=== PATIENT | male | born 1995 | race Caucasian/White ===

== ENCOUNTER 2022-08-19 17:59 | Inpatient (IN) ==
[2022-08-19 18:49] LABS: Appearance Urine Clear (Clear); Bilirubin Urine Negative (Negative); Blood Urine Negative (Negative); Color Urine Yellow; Glucose Urine UA Negative (Negative); Ketones Urine Negative (Negative); Leukocyte Esterase Urine Negative (Negative); Nitrite Urine Negative (Negative); Protein Urine Negative (Negative); Specific Gravity Urine 1.022 (1.000-1.030); Urobilinogen Urine Negative (Negative); pH Urine 6.5 (4.5-7.5)
[2022-08-19 18:53] LABS: Basophils # (auto) 0.01 K/uL (0-0.2); Basophils % (auto) 0.2 %; Eosinophils # (auto) 0.32 K/uL (0-0.50); Eosinophils % (auto) 5.1 %; Hematocrit (blood only) 43.5 % (42.0-52.0); Hemoglobin 15.2 g/dl (14.0-18.0); Immature Granulocytes # (auto) 0.01 K/uL (0.01-0.20); Immature Granulocytes % (auto) 0.2 %; Lymphocytes # (auto) 1.49 K/uL (1.2-3.4); Lymphocytes % (auto) 23.8 %; Mean Corpuscular Hemoglobin 30.6 pg (25.0-34.0); Mean Corpuscular Hgb Conc 34.9 g/dL (32.0-36.0); Mean Corpuscular Volume 87.5 fL (80.0-100.0); Mean Platelet Volume 11.2 fL (9.4-12.4); Monocytes # (auto) 0.35 K/uL (0.11-0.59); Monocytes % (auto) 5.6 %; Neutrophils # (auto) 4.09 K/uL (1.40-6.50); Neutrophils % (auto) 65.1 %; Platelet Count 194 K/uL (130-400); RDW Coefficient of Variation 11.9 % (11.5-14.5); RDW Standard Deviation 38.3 fL (36.4-46.3); Red Blood Count 4.97 M/uL (4.70-6.10); White Blood Count 6.27 K/ul (4.8-10.8)
[2022-08-19 19:02] LABS: Acetaminophen < 3 ug/ml (10-30); Salicylate < 3.0 mg/dl (3.0-30)
[2022-08-19 19:03] LABS: Albumin Level 4.6 gm/dl (3.4-5.0); BUN Creatinine Ratio 9.2 (10-20); Bilirubin,Total 0.4 mg/dl (0.2-1.0); Calcium 9.3 mg/dl (8.6-10.3); Creatinine Clr Calc Pharmacy 104.3 ml/min; Est GFR (African American) 108.8 ml/min; Est GFR (Non-African American) 93.8 ml/min; Globulin 2.3 gm/dl (2.5-4.0); Potassium 4.1 mmol/L (3.5-5.1); Total Protein 6.9 gm/dl (6.0-8.3)
[2022-08-19 20:00] LABS: Amphetamines+Metham, Urine Neg (Neg); Barbiturates, Urine Neg (Neg); Benzodiazepine, Urine Neg (Neg); Cocaine, Urine Neg (Neg); MDMA (Ecstacy), Urine Pos (Neg); Methadone, Urine Neg (Neg); Opiate, Urine Neg (Neg); Phencyclidine, Urine Neg (Neg)
--- NOTE | 2022-08-19 20:28 | Emergency Department Note ---
Impression & Plan Mood disorder, Suicidal ideation ED Provider Note INFORMANT: Patient and brother ED PROVIDER(S): Bebeto Pollock MD CHIEF COMPLAINT: Suicidal ideation PLAN: Disposition: Admitted Condition: Good Outpatient prescription management: none Referral: None MEDICAL DECISION MAKING: patient presented because of suicidal ideation. He had no recent medical illness. A medical screening exam was performed did not reveal any acute medical issues. The patient had unremarkable laboratory testing including toxicology screening. Consultation was made with [address] [place] [address]. 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 After review of the information above and other included data, I feel the patien t requires admission. Triage Nursing notes reviewed and agree them. Vital Signs: reviewed and remarkable for no significant abnormalities Prior /Outside records reviewed: none Differential diagnosis: Mood disorder, infection, hypoglycemia, electrolyte abnormalities, cardiac sources, intracerebral event, toxicologic, trauma, neurologic, as well as other pathologies. Diagnostics, as interpreted by me: ECG: none Cardiac Monitoring: none Medical decision rules: none Imaging studies: Deferred HPI: The patient is a 26year old male who presents to the Emergency Room with complaints of suicidal ideation. This started this week and is noted to have worsened today. Patient had a gun and was thinking of shooting himself. He stopped before trying any action and came to the emergency department for help. The patient also notes the following associated symptoms, feeling depressed, poor eating habits, lack of energy. The patient has found no relieving factors. Current pain is rated as 0 no recent illness. Patient follows with [facility].. Pt denies LOC, headache, fevers, chills, diaphoresis, visual changes, neck pain, chest pain, breathing difficulties, nausea, vomiting, abdominal pain, back pain, melena, hematochezia, urinary symptoms, numbness, weakness, lymphadenopathy, rash, or other complaints. PAST MEDICAL HISTORY: See Below, anxiety, depression PAST SURGICAL HISTORY: See Below, SOCIAL HISTORY: See Below, denies alcohol or drugs except marijuana HOME MEDICATIONS: See Below ALLERGIES: See Below VITALS: See Below PHYSICAL EXAMINATION: GENERAL: Awake, alert, well-appearing, in no distress HENT: Normocephalic, atraumatic. Oropharynx unremarkable. EYES: Normal conjunctiva. Sclera non-icteric. NECK: Inspection normal. Non-tender. Supple. No nuchal rigidity. FROM. No masses. RESPIRATORY: Clear to auscultation. No wheezes. No rales. Normal respiratory effort. CARDIAC: Normal rate. Normal rhythm. No murmurs. No rubs. Extremities warm and well perfused. Pulses equal. No JVD. GI: Soft, non-distended. No tenderness to palpation. No rebound or guarding. No masses. RECTAL: Deferred. MUSCULOSKELETAL: Atraumatic. Chest examination reveals no tenderness. The back is symmetrical on inspection without obvious abnormality. There is no CVA tenderness to palpation. No joint edema. LOWER EXTREMITIES: Calves are equal size bilaterally and non-tender. No edema. No discoloration. NEURO: Normal sensorium. No sensory or motor deficits noted. SKIN: No rash or jaundice noted. PSYCH: Depressed mood and flat affect. Positive suicidal ideation. No hallucinations or delusions Past Med/Surg History Medical History (Updated 08/20/22 @ 11:58 by Rhonda Palomino MD) No active medical problems Surgical History No significant past surgical history Family History Other No significant family history Denies family history of Colon cancer Ovarian cancer Prostate cancer Myocardial infarction Breast cancer Social History Smoking Status: Never smoker Tobacco Type: E-cigarettes / Vaping Second Hand Exposure: Yes; Do You Dip or Chew Tobacco: No; Hx Alcohol Use: Yes Alcohol Intake Frequency: Monthly or Less Hx Substance Use: No Preferred Language: Norwegian Communication Ability: Effective Visual Impairment: No Limitations Hearing Ability: Normal Trestle Builder Required: No Beliefs That Will Affect Care: None marital status: Single Current Living Situation: Family Current Living Situation Comment: Lives with brother and girlfriend current occupational status: employed 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 Feels Safe at Home: Yes Dental Care, Regularly: No Physical Activity Frequency: Does not Exercise Gender Identity: Male Assistive Devices: None Allergies Allergies Allergy/AdvReac Type Severity Reaction Status Date / Time cat dander Allergy Sneezing Verified 08/19/22 18:52 Home Meds Home Medications Medication Instructions Recorded Confirmed albuterol sulfate 90 mcg/actuation 1 - 2 inh inhalation QID PRN 08/19/22 08/19/22 aerosol inhaler Shortness Of Breath Or Wheezing bupropion HCl 300 mg 24 hr tablet, 300 mg PO DAILY 08/19/22 08/19/22 extended release buspirone 15 mg tablet 15 mg PO TID 08/19/22 08/19/22 citalopram 20 mg tablet 40 mg PO DAILY 08/19/22 08/19/22 clonidine HCl 0.1 mg tablet 0.05 mg PO BID 08/19/22 08/19/22 lorazepam 0.5 mg tablet 0.5 mg PO TID PRN Anxiety 08/19/22 08/19/22 Results & Data (ED) Vital Signs Vital Signs - 24 hr 08/19/22 18:05 Temperature 36.8 C Temperature Source Temporal Artery Scan Pulse Rate 93 H Respiratory Rate 18 Respiratory Effort / Characteristics Non-Labored Spontaneous Respiratory Depth Normal Respiratory Pattern Regular Blood Pressure 128/84 Blood Pressure Mean 98 Pulse Oximetry 96 Oxygen Delivery Method Room Air Sepsis Recent Fever Within 48 Hours No Sepsis New/Unexplained Change in Mental Status No Sepsis Action Taken by Nursing No Action Required Laboratory Data 08/19/22 18:31 08/19/22 18:31 Lab Results 08/19/22 08/19/22 08/19/22 Range/Units 18:12 18:17 18:17 WBC (4.8-10.8) K/ul RBC (4.70-6.10) M/uL Hgb (14.0-18.0) g/dl Hct (42.0-52.0) % MCV (80.0-100.0) fL MCH (25.0-34.0) pg MCHC (32.0-36.0) g/dL RDW Std Deviation (36.4-46.3) fL RDW Coeff of Vanessa (11.5-14.5) % Plt Count (130-400) K/uL MPV (9.4-12.4) fL Immature Gran % (Auto) % Neut % (Auto) % Lymph % (Auto) % [place] % (Auto) % Eos % (Auto) % Baso % (Auto) % Neut # (Auto) (1.40-6.50) K/uL Lymph # (Auto) (1.2-3.4) K/uL [place] # (Auto) (0.11-0.59) K/uL Eos # (Auto) (0-0.50) K/uL Baso # (Auto) (0-0.2) K/uL Immature Gran # (Auto) (0.01-0.20) K/uL Sodium (136-145) mmol/L Potassium (3.5-5.1) mmol/L Chloride (98-107) mmol/L Carbon Dioxide (21-32) mmol/L Anion Gap (3-11) BUN (6-23) mg/dl Creatinine (0.6-1.4) mg/dl Est Cr Clr Drug Dosing ml/min Est GFR ( Amer) ml/min Est GFR (Non-Af Amer) ml/min BUN/Creatinine Ratio (10-20) Glucose (70-99(Fasting)) mg/dl Calcium (8.6-10.3) mg/dl Total Bilirubin (0.2-1.0) mg/dl AST (13-39) U/L ALT (7-52) U/L Alkaline Phosphatase (34-104) U/L Total Protein (6.0-8.3) gm/dl Albumin (3.4-5.0) gm/dl Globulin (2.5-4.0) gm/dl Albumin/Globulin Ratio (0.9-2) TSH (0.300-4.500) uIu/ml Urine Color Yellow Urine Appearance Clear (Clear) Urine pH 6.5 (4.5-7.5) Ur Specific Tony 1.022 (1.000-1.030) Urine Protein Negative (Negative) Urine Glucose (UA) Negative (Negative) Urine Ketones Negative (Negative) Urine Blood Negative (Negative) Urine Nitrite Negative (Negative) Urine Bilirubin Negative (Negative) Urine Urobilinogen Negative (Negative) Ur Leukocyte Esterase Negative (Negative) Salicylates (3.0-30) mg/dl Urine Opiates Screen Neg (Neg) Ur Methadone, Qual Neg (Neg) Acetaminophen (10-30) ug/ml Urine Barbiturates Neg (Neg) Ur Phencyclidine (PCP) Neg (Neg) U Amphetamin/Meth Scrn Neg (Neg) MDMA (Ecstasy) Screen Pos H (Neg) U Benzodiazepines Scrn Neg (Neg) Ur Cocaine Metabolite Neg (Neg) U Marijuana (THC) Screen Pos H (Neg) Ethyl Alcohol mg/dL (<10.0) mg/dl SARS-CoV-2, RNA, NAAT NEGATIVE (NEGATIVE) 08/19/22 08/19/22 08/19/22 Range/Units 18:31 18:31 18:31 WBC 6.27 (4.8-10.8) K/ul RBC 4.97 (4.70-6.10) M/uL Hgb 15.2 (14.0-18.0) g/dl Hct 43.5 (42.0-52.0) % MCV 87.5 (80.0-100.0) fL MCH 30.6 (25.0-34.0) pg MCHC 34.9 (32.0-36.0) g/dL RDW Std Deviation 38.3 (36.4-46.3) fL RDW Coeff of Vanessa 11.9 (11.5-14.5) % Plt Count 194 (130-400) K/uL MPV 11.2 (9.4-12.4) fL Immature Gran % (Auto) 0.2 % Neut % (Auto) 65.1 % Lymph % (Auto) 23.8 % [place] % (Auto) 5.6 % Eos % (Auto) 5.1 % Baso % (Auto) 0.2 % Neut # (Auto) 4.09 (1.40-6.50) K/uL Lymph # (Auto) 1.49 (1.2-3.4) K/uL [place] # (Auto) 0.35 (0.11-0.59) K/uL Eos # (Auto) 0.32 (0-0.50) K/uL Baso # (Auto) 0.01 (0-0.2) K/uL Immature Gran # (Auto) 0.01 (0.01-0.20) K/uL Sodium 139 (136-145) mmol/L Potassium 4.1 (3.5-5.1) mmol/L Chloride 103 (98-107) mmol/L Carbon Dioxide 30 (21-32) mmol/L Anion Gap 6 (3-11) BUN 10 (6-23) mg/dl Creatinine 1.09 (0.6-1.4) mg/dl Est Cr Clr Drug Dosing 104.3 ml/min Est GFR ( Amer) 108.8 ml/min Est GFR (Non-Af Amer) 93.8 ml/min BUN/Creatinine Ratio 9.2 L (10-20) Glucose 100 H (70-99(Fasting)) mg/dl Calcium 9.3 (8.6-10.3) mg/dl Total Bilirubin 0.4 (0.2-1.0) mg/dl AST 16 (13-39) U/L ALT 16 (7-52) U/L Alkaline Phosphatase 67 (34-104) U/L Total Protein 6.9 (6.0-8.3) gm/dl Albumin 4.6 (3.4-5.0) gm/dl Globulin 2.3 L (2.5-4.0) gm/dl Albumin/Globulin Ratio 2.0 (0.9-2) TSH 2.945 (0.300-4.500) uIu/ml Urine Color Urine Appearance (Clear) Urine pH (4.5-7.5) Ur Specific Tony (1.000-1.030) Urine Protein (Negative) Urine Glucose (UA) (Negative) Urine Ketones (Negative) Urine Blood (Negative) Urine Nitrite (Negative) Urine Bilirubin (Negative) Urine Urobilinogen (Negative) Ur Leukocyte Esterase (Negative) Salicylates (3.0-30) mg/dl Urine Opiates Screen (Neg) Ur Methadone, Qual (Neg) Acetaminophen (10-30) ug/ml Urine Barbiturates (Neg) Ur Phencyclidine (PCP) (Neg) U Amphetamin/Meth Scrn (Neg) MDMA (Ecstasy) Screen (Neg) U Benzodiazepines Scrn (Neg) Ur Cocaine Metabolite (Neg) U Marijuana (THC) Screen (Neg) Ethyl Alcohol mg/dL (<10.0) mg/dl SARS-CoV-2, RNA, NAAT (NEGATIVE) 08/19/22 08/19/22 Range/Units 18:31 18:31 WBC (4.8-10.8) K/ul RBC (4.70-6.10) M/uL Hgb (14.0-18.0) g/dl Hct (42.0-52.0) % MCV (80.0-100.0) fL MCH (25.0-34.0) pg MCHC (32.0-36.0) g/dL RDW Std Deviation (36.4-46.3) fL RDW Coeff of Vanessa (11.5-14.5) % Plt Count (130-400) K/uL MPV (9.4-12.4) fL Immature Gran % (Auto) % Neut % (Auto) % Lymph % (Auto) % [place] % (Auto) % Eos % (Auto) % Baso % (Auto) % Neut # (Auto) (1.40-6.50) K/uL Lymph # (Auto) (1.2-3.4) K/uL [place] # (Auto) (0.11-0.59) K/uL Eos # (Auto) (0-0.50) K/uL Baso # (Auto) (0-0.2) K/uL Immature Gran # (Auto) (0.01-0.20) K/uL Sodium (136-145) mmol/L Potassium (3.5-5.1) mmol/L Chloride (98-107) mmol/L Carbon Dioxide (21-32) mmol/L Anion Gap (3-11) BUN (6-23) mg/dl Creatinine (0.6-1.4) mg/dl Est Cr Clr Drug Dosing ml/min Est GFR ( Amer) ml/min Est GFR (Non-Af Amer) ml/min BUN/Creatinine Ratio (10-20) Glucose (70-99(Fasting)) mg/dl Calcium (8.6-10.3) mg/dl Total Bilirubin (0.2-1.0) mg/dl AST (13-39) U/L ALT (7-52) U/L Alkaline Phosphatase (34-104) U/L Total Protein (6.0-8.3) gm/dl Albumin (3.4-5.0) gm/dl Globulin (2.5-4.0) gm/dl Albumin/Globulin Ratio (0.9-2) TSH (0.300-4.500) uIu/ml Urine Color Urine Appearance (Clear) Urine pH (4.5-7.5) Ur Specific Tony (1.000-1.030) Urine Protein (Negative) Urine Glucose (UA) (Negative) Urine Ketones (Negative) Urine Blood (Negative) Urine Nitrite (Negative) Urine Bilirubin (Negative) Urine Urobilinogen (Negative) Ur Leukocyte Esterase (Negative) Salicylates < 3.0 L (3.0-30) mg/dl Urine Opiates Screen (Neg) Ur Methadone, Qual (Neg) Acetaminophen < 3 L (10-30) ug/ml Urine Barbiturates (Neg) Ur Phencyclidine (PCP) (Neg) U Amphetamin/Meth Scrn (Neg) MDMA (Ecstasy) Screen (Neg) U Benzodiazepines Scrn (Neg) Ur Cocaine Metabolite (Neg) U Marijuana (THC) Screen (Neg) Ethyl Alcohol mg/dL < 10.0 (<10.0) mg/dl SARS-CoV-2, RNA, NAAT (NEGATIVE) Administered Medications Bupropion HCl (Bupropion Xl 300 Mg Tabcr) 300 mg PO DAILY [facility] Stop: 09/19/22 08:59 Last Admin: 08/20/22 08:51 Dose: 300 mg Documented By: MARILUT Buspirone HCl (Buspirone 15 Mg Tab) 15 mg PO TID [facility] Stop: 09/18/22 22:14 Last Admin: 08/20/22 21:25 Dose: 15 mg Documented By: Admin: 08/20/22 14:18 Dose: 15 mg Documented By: Admin: 08/20/22 08:51 Dose: 15 mg Documented By: Admin: 08/19/22 22:49 Dose: 15 mg Documented By: KELLY Citalopram Hydrobromide (Citalopram 40 Mg Tab) 40 mg PO DAILY [facility] Stop: 09/19/22 08:59 Last Admin: 08/20/22 08:52 Dose: 40 mg Documented By: AMRILUT Clonidine HCl (Clonidine Hcl 0.1 Mg Tab) 0.05 mg PO BID [facility] Stop: 09/18/22 22:29 Last Admin: 08/20/22 21:23 Dose: 0.05 mg Documented By: Admin: 08/20/22 08:52 Dose: 0.05 mg Documented By: Admin: 08/19/22 22:49 Dose: 0.05 mg Documented By: KELLY Miscellaneous (Remove Nicoderm Patch) 1 each N/A DAILY@[id number] [facility] Stop: 09/19/22 08:58 Last Admin: 08/20/22 08:51 Dose: Not Given Documented By: MARILUT Nicotine (Nicotine 14 Mg/24 Hr Patch) 14 mg TD QAM [facility] Stop: 09/19/22 08:59 Last Admin: 08/20/22 08:54 Dose: 14 mg Documented By: MARILUT Nicotine Polacrilex (Nicotine Polacrilex 2 Mg Gum) 1 piece MT Q2H PRN PRN Reason: nicotine withdrawal Stop: 09/19/22 11:08 Last Admin: 08/20/22 14:18 Dose: 1 piece Documented By: Admin: 08/20/22 11:41 Dose: 1 piece Documented By: EVETTE Discharge Plan Visit Data Chief Complaint: Mental Health Evaluation Stated Complaint: ATTEMPTED SUICIDE ED Provider: Bebeto Pollock Discharge Problem: Mood disorder, Suicidal ideation Patient Disposition: Transfer Behavioral Health Fac Discharge Instructions Interventions: ED Discharge Assessment Last Done: 08/19/22 21:49
[2022-08-19] MEDS ORDERED: hydrOXYzine HCl 25 MG TAB PO PRN (20:54)
[2022-08-19] MEDS ORDERED: ACETAMINOPHEN 325 MG TAB PO PRN (20:54)
[2022-08-19] MEDS ORDERED: BISMUTH SUBSALICYLATE LIQD 236 ML PO PRN (20:54)
[2022-08-19] MEDS ORDERED: ALUMINUM/MAGNESIUM SUSP 30 ML UDC PO PRN (20:54)
[2022-08-19] MEDS ORDERED: MAGNESIUM HYDROXIDE SUSP 30 ML UDC PO PRN (20:54)
[2022-08-19] MEDS ORDERED: SODIUM CHLORIDE 0.65% NA SOLN 45 ML (OCEAN) PRN (20:54)
[2022-08-19] MEDS ORDERED: cloNIDine HCL 0.1 MG TAB PO PRN (22:13)
[2022-08-19] MEDS: cloNIDine HCL 0.1 MG TAB PO SCH (22:49)
[2022-08-19] MEDS: busPIRone 15 MG TAB PO SCH (22:49)
[2022-08-20] MEDS ORDERED: LORazepam 0.5 MG TAB PO PRN (07:45)
[2022-08-20] MEDS: buPROPion XL 300 MG TABCR PO SCH (08:51)
[2022-08-20] MEDS: busPIRone 15 MG TAB PO SCH ×3 (08:51→21:25)
[2022-08-20] MEDS: CITALOPRAM 40 MG TAB PO SCH (08:52)
[2022-08-20] MEDS: cloNIDine HCL 0.1 MG TAB PO SCH ×2 (08:52→21:23)
[2022-08-20] MEDS: NICOTINE 14 MG/24 HR PATCH TD SCH (08:54)
[2022-08-20] MEDS ORDERED: cloNIDine HCL 0.1 MG TAB PO SCH (09:00)
--- NOTE | 2022-08-20 09:09 | History & Physical ---
Date of Service August 20, 2022 Impression / Recommendations Impression 26 yo male with longstanding depression and social anxiety quickly developed worsening mood and SI during period of heavy delta 8 use. He aborted what would have been suicide by gun. (1) Major depression: (2) Social anxiety disorder: (3) Cannabis abuse: Plan The patient was admitted to the [facility] ([facility] mental health unit) on q15 min checks (behavioral with suicide precautions) for safety. The patient will participate in group, recreational, and milieu therapies and will be offered additional individual and family sessions as clinically appropriate. Inventory Assets Strengths: sought help, intelligent Needs: improve coping, secure weapon Suicide Risk Level Suicide Risk Level: High-Moderate (q15 min suicide checks) Risk Factors Assessment Male: Yes : Yes Do You Have Access To A Gun?: Yes (unclear if brother secured) Previous Psychiatric Hospitalization: Yes Protective Factors Assessment Employed: Yes ("[employer]") Supportive Family: Yes Psychiatric History Identifying Data JESUSITA GALEANO is a 26-year-old M who currently lives in [place], and was admitted on 08/19/22 20:54 on a 201 voluntary commitment for aborted suicide attempt by lethal weapon. Chief Complaint "I held it to my head and though 'what am I doing?' and headed here." History of Present Illness Jesusita describes longstanding social anxiety and has been getting more treatment for past two years for depression. He stated that he started to feel better and was pushing himself to socialize more but couldn't which caused him to spiral. He started smoking MJ, which on further questioning is Delta [address]. He states that he feels relief for "maybe an hour and half" and then feels worse. He has been using heavily for past 2 weeks. He started having suicidal thoughts and planned to use his brother's gun at a time his step- brother (roommate) and step-brother's girlfriend were out of the home. These thoughts/plan developed over 2 days of him missing work. He doesn't particularly like his job as he feels the pay is low and feels like "the whole place falls apart when I'm not there." Yesterday he held the gun to his yarsani and thought about pulling the trigger to see if the safety was on. In that moment he decide to get help instead. He reports that physically he feels well and that he is taking medication consistently without side effects. Past Psychiatric History Current Psychiatric Diagnosis: Depression; Anxiety Outpatient Services: Mike Newman), therapist in [place] Previous Psych Admissions: none Do You Have Access To A Gun?: Yes (unclear if brother secured) History of Previous Suicide Attempt: No Past Medication Trials: signed T[facility]URE for [place] records Allergies Allergy/AdvReac Type Severity Reaction Status Date / Time cat dander Allergy Sneezing Verified 08/19/22 18:52 Home Medications Medication Instructions Recorded Confirmed Type albuterol sulfate 90 mcg/actuation 1 - 2 inh inhalation QID PRN 08/19/22 08/19/22 History aerosol inhaler Shortness Of Breath Or Wheezing bupropion HCl 300 mg 24 hr tablet, 300 mg PO DAILY 08/19/22 08/19/22 History extended release buspirone 15 mg tablet 15 mg PO TID 08/19/22 08/19/22 History citalopram 20 mg tablet 40 mg PO DAILY 08/19/22 08/19/22 History clonidine HCl 0.1 mg tablet 0.05 mg PO BID 08/19/22 08/19/22 History lorazepam 0.5 mg tablet 0.5 mg PO TID PRN Anxiety 08/19/22 08/19/22 History Family History Family History of: Doesn't Know Alcohol History Hx of Alcohol Use Over the Past 12 Months: Yes (occassional) AUDIT Total Score: 3 Smoking Use tobacco type: e-cigarettes Smoking Status: Never smoker Substance History Hx of Prescription Med Misuse Over the Past 12 Months: No Hx of Over the Counter Med Misuse Over the Past 12 Months: No Hx of Inhalent Misuse Over the Past 12 Months: No Hx of Organic Substance Use Over the Past 12 Months: Yes ("a lot of weed") Hx of Illegal Substances/Street Drug Use Over Past 12 Months: No Problems as a Result of Past Substance Use: None Identified Problems as a Result of Past Substance Use Comments: Does state "the weed may have contributed to my suicide attempt." Personal History Living Arrangements: Home Childhood: parents Highest Grade Completed: College 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 Marital Status: Single Number Of Children: 0 Beliefs That Will Affect Care: None Current Legal Problems: No Hx Legal Problems: No Hx Traumatic Life Events: No Patient History Medical History (Updated 08/20/22 @ 11:58 by Rhonda Palomino MD) No active medical problems Surgical History No significant past surgical history Family History Other No significant family history Denies family history of Colon cancer Ovarian cancer Prostate cancer Myocardial infarction Breast cancer Social History Smoking Status: Never smoker Tobacco Type: E-cigarettes / Vaping Second Hand Exposure: Yes; Do You Dip or Chew Tobacco: No; Hx Alcohol Use: Yes Alcohol Intake Frequency: Monthly or Less Hx Substance Use: No Preferred Language: Occitan Communication Ability: Effective Visual Impairment: No Limitations Hearing Ability: Normal Demand Generation Manager Required: No Beliefs That Will Affect Care: None marital status: Single Current Living Situation: Family Current Living Situation Comment: Lives with brother and girlfriend current occupational status: employed 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 Feels Safe at Home: Yes Dental Care, Regularly: No Physical Activity Frequency: Does not Exercise Gender Identity: Male Assistive Devices: None Review of Systems Review of Systems: All systems reviewed & are unremarkable except as noted in HPI & below Physical Exam Psychiatric: Orientation: alert and oriented x 3 Apperance: appropriately dressed and appropriately groomed Eye Contact: good eye contact Motor Behavior: no abnormal motor movements Speech: normal rate/rhythm/volume of speech Affect: + depressed affect Mood: + depressed mood Thought Process: goal directed thought process Thought Content: reality based without delusions Suicidal Thoughts: denies suicidal intent; + reports suicidal thoughts and + reports suicidal plan Homicidal Thoughts: denies homicidal thoughts Hallucinations: no auditory hallucinations and no visual hallucinations Cognition: attention grossly intact and language grossly intact Estimated Intelligence: consistent with education level Insight: + limited insight Judgment: + limited judgement Vital Signs (Past 24 Hours): Last Vital Signs Temp 36.8 C 08/20/22 06:38 Pulse 76 08/20/22 06:39 Resp 16 08/20/22 06:38 BP 106/70 08/20/22 06:39 Pulse Ox 96 08/19/22 18:05 O2 Del Method Room Air 08/19/22 22:18 Exam Statement: A physical exam was performed in the ED by Dr. Pollock for the purposes of medical clearance. I accept that physical as correct and adequate for the purposes of the inpatient physical exam. Results & Data ([facility]) Laboratory Results Laboratory Results - last 24 hr 08/19/22 08/19/22 08/19/22 18:12 18:17 18:17 WBC RBC Hgb Hct MCV MCH MCHC RDW Std Deviation RDW Coeff of Vanessa Plt Count MPV Immature Gran % (Auto) Neut % (Auto) Lymph % (Auto) Atlantic % (Auto) Eos % (Auto) Baso % (Auto) Neut # (Auto) Lymph # (Auto) Atlantic # (Auto) Eos # (Auto) Baso # (Auto) Immature Gran # (Auto) Sodium Potassium Chloride Carbon Dioxide Anion Gap BUN Creatinine Est Cr Clr Drug Dosing Est GFR ( Amer) Est GFR (Non-Af Amer) BUN/Creatinine Ratio Glucose Calcium Total Bilirubin AST ALT Alkaline Phosphatase Total Protein Albumin Globulin Albumin/Globulin Ratio TSH Urine Color Yellow Urine Appearance Clear Urine pH 6.5 Ur Specific Corbin 1.022 Urine Protein Negative Urine Glucose (UA) Negative Urine Ketones Negative Urine Blood Negative Urine Nitrite Negative Urine Bilirubin Negative Urine Urobilinogen Negative Ur Leukocyte Esterase Negative Salicylates Urine Opiates Screen Neg Ur Methadone, Qual Neg Acetaminophen Urine Barbiturates Neg Ur Phencyclidine (PCP) Neg U Amphetamin/Meth Scrn Neg Urine MDEA MDMA (Ecstasy) Screen Pos H MDMA Urine MDMA U Benzodiazepines Scrn Neg Ur Cocaine Metabolite Neg U Marijuana (THC) Screen Pos H U Marijuana THC Carboxy Drug Screen Comment Ethyl Alcohol mg/dL SARS-CoV-2, RNA, NAAT NEGATIVE 08/19/22 08/19/22 08/19/22 18:17 18:31 18:31 WBC 6.27 RBC 4.97 Hgb 15.2 Hct 43.5 MCV 87.5 MCH 30.6 MCHC 34.9 RDW Std Deviation 38.3 RDW Coeff of Vanessa 11.9 Plt Count 194 MPV 11.2 Immature Gran % (Auto) 0.2 Neut % (Auto) 65.1 Lymph % (Auto) 23.8 Atlantic % (Auto) 5.6 Eos % (Auto) 5.1 Baso % (Auto) 0.2 Neut # (Auto) 4.09 Lymph # (Auto) 1.49 Atlantic # (Auto) 0.35 Eos # (Auto) 0.32 Baso # (Auto) 0.01 Immature Gran # (Auto) 0.01 Sodium 139 Potassium 4.1 Chloride 103 Carbon Dioxide 30 Anion Gap 6 BUN 10 Creatinine 1.09 Est Cr Clr Drug Dosing 104.3 Est GFR ( Amer) 108.8 Est GFR (Non-Af Amer) 93.8 BUN/Creatinine Ratio 9.2 L Glucose 100 H Calcium 9.3 Total Bilirubin 0.4 AST 16 ALT 16 Alkaline Phosphatase 67 Total Protein 6.9 Albumin 4.6 Globulin 2.3 L Albumin/Globulin Ratio 2.0 TSH Urine Color Urine Appearance Urine pH Ur Specific Corbin Urine Protein Urine Glucose (UA) Urine Ketones Urine Blood Urine Nitrite Urine Bilirubin Urine Urobilinogen Ur Leukocyte Esterase Salicylates Urine Opiates Screen Ur Methadone, Qual Acetaminophen Urine Barbiturates Ur Phencyclidine (PCP) U Amphetamin/Meth Scrn Urine MDEA Pending MDMA (Ecstasy) Screen MDMA Pending Urine MDMA Pending U Benzodiazepines Scrn Ur Cocaine Metabolite U Marijuana (THC) Screen U Marijuana THC Carboxy Pending Drug Screen Comment Pending Ethyl Alcohol mg/dL SARS-CoV-2, RNA, NAAT 08/19/22 08/19/22 08/19/22 18:31 18:31 18:31 WBC RBC Hgb Hct MCV MCH MCHC RDW Std Deviation RDW Coeff of Vanessa Plt Count MPV Immature Gran % (Auto) Neut % (Auto) Lymph % (Auto) Atlantic % (Auto) Eos % (Auto) Baso % (Auto) Neut # (Auto) Lymph # (Auto) Atlantic # (Auto) Eos # (Auto) Baso # (Auto) Immature Gran # (Auto) Sodium Potassium Chloride Carbon Dioxide Anion Gap BUN Creatinine Est Cr Clr Drug Dosing Est GFR ( Amer) Est GFR (Non-Af Amer) BUN/Creatinine Ratio Glucose Calcium Total Bilirubin AST ALT Alkaline Phosphatase Total Protein Albumin Globulin Albumin/Globulin Ratio TSH 2.945 Urine Color Urine Appearance Urine pH Ur Specific [place] Urine Protein Urine Glucose (UA) Urine Ketones Urine Blood Urine Nitrite Urine Bilirubin Urine Urobilinogen Ur Leukocyte Esterase Salicylates < 3.0 L Urine Opiates Screen Ur Methadone, Qual Acetaminophen < 3 L Urine Barbiturates Ur Phencyclidine (PCP) U Amphetamin/Meth Scrn Urine MDEA MDMA (Ecstasy) Screen MDMA Urine MDMA U Benzodiazepines Scrn Ur Cocaine Metabolite U Marijuana (THC) Screen U Marijuana THC Carboxy Drug Screen Comment Ethyl Alcohol mg/dL < 10.0 SARS-CoV-2, RNA, NAAT Current Inpatient Medications Current Inpatient Medications: Current Inpatient Medications Acetaminophen (Acetaminophen 325 Mg Tab) 650 mg PO Q4H PRN PRN Reason: Headache or Minor Fever Stop: 09/18/22 20:53 Al Hydrox/Mg Hydrox/Simethicone (Aluminum/Magnesium Susp 30 Ml Udc) 30 ml PO Q4H PRN PRN Reason: GI Upset Stop: 09/18/22 20:53 Bismuth Subsalicylate (Bismuth Subsalicylate Liqd 236 Ml) 15 ml PO PRN PRN PRN Reason: Loose Stool Stop: 09/18/22 20:53 Bupropion HCl (Bupropion Xl 300 Mg Tabcr) 300 mg PO DAILY LENI Stop: 09/19/22 08:59 Last Admin: 08/20/22 08:51 Dose: 300 mg Buspirone HCl (Buspirone 15 Mg Tab) 15 mg PO TID LENI Stop: 09/18/22 22:14 Last Admin: 08/20/22 08:51 Dose: 15 mg Citalopram Hydrobromide (Citalopram 40 Mg Tab) 40 mg PO DAILY LENI Stop: 09/19/22 08:59 Last Admin: 08/20/22 08:52 Dose: 40 mg Clonidine HCl (Clonidine Hcl 0.1 Mg Tab) 0.05 mg PO BID LENI Stop: 09/18/22 22:29 Last Admin: 08/20/22 08:52 Dose: 0.05 mg Hydroxyzine HCl (Hydroxyzine Hcl 25 Mg Tab) 50 mg PO HSZ PRN PRN Reason: Insomnia Stop: 09/18/22 20:53 Hydroxyzine HCl (Hydroxyzine Hcl 25 Mg Tab) 25 mg PO Q4H PRN PRN Reason: Anxiety Stop: 09/18/22 20:53 Lorazepam (Lorazepam 0.5 Mg Tab) 0.5 mg PO TID PRN PRN Reason: Anxiety Stop: 09/19/22 07:44 Magnesium Hydroxide (Magnesium Hydroxide Susp 30 Ml Udc) 30 ml PO DAILY PRN PRN Reason: Constipation Stop: 09/18/22 20:53 Miscellaneous (Remove Nicoderm Patch) 1 each N/A DAILY@0859 [facility] Stop: 09/19/22 08:58 Last Admin: 08/20/22 08:51 Dose: Not Given Nicotine (Nicotine 14 Mg/24 Hr Patch) 14 mg TD QAM [facility] Stop: 09/19/22 08:59 Last Admin: 08/20/22 08:54 Dose: 14 mg Sodium Chloride (Sodium Chloride 0.65% Na Soln 45 Ml ([place])) 1 - 2 sprays NA PRN PRN PRN Reason: Nasal Dryness/Congestion Stop: 09/18/22 20:53
[2022-08-20] MEDS: NICOTINE POLACRILEX 2 MG GUM MT PRN ×2 (11:41→14:18)
[2022-08-21] MEDS: NICOTINE 14 MG/24 HR PATCH TD SCH (07:52)
[2022-08-21] MEDS: CITALOPRAM 40 MG TAB PO SCH (07:53)
[2022-08-21] MEDS: buPROPion XL 300 MG TABCR PO SCH (07:53)
[2022-08-21] MEDS: busPIRone 15 MG TAB PO SCH ×4 (07:53→20:35)
[2022-08-21] MEDS: cloNIDine HCL 0.1 MG TAB PO SCH (09:30)
--- NOTE | 2022-08-21 14:37 | Psychiatric Progress Note ---
Date of Service August 21, 2022 Impression / Recommendations Impression 26 yo male with longstanding depression and social anxiety quickly developed worsening mood and SI during period of heavy delta 8 use. He aborted what would have been suicide by gun. (1) Major depression: (2) Social anxiety disorder: (3) Cannabis abuse: Plan 08/21/22: taper Celexa to 20 mg in am in preparation for a trial of another antidepressant to better target anxiety. D/C clonidine as dose held due to BP this am and sporadic compliance. Reviewed risk of rebound hypertension likely minimal. Already using Ativan prn in some circumstances but propranolol may be preferrable given his substance use. He does not plan to resume delta 8 THC as didn't realize the side effects of synthetics and realizes it "messed with him." Brief Intervention was greater than 5 min in length and included assessing readiness to quit, advice on how to reduce or abstain from all forms of THC, and to set a specific goal for this hospitalization. 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 The patient is in [precontemplation] stage with regards to transtheoretical model of change. The patient is advised to decrease alcohol consumption due to depressant effects and risk of interaction with prescription medications. The patient agreed to [] and will be provided with recovery materials to continue to educate self on how to cope with their condition without drinking. 08/20/22: The patient was admitted to the [facility] ([facility] mental health unit) on q15 min checks (behavioral with suicide precautions) for safety. The patient will participate in group, recreational, and milieu therapies and will be offered additional individual and family sessions as clinically appropriate. Inventory Assets Strengths: sought help, intelligent Needs: improve coping, secure weapon Suicide Risk Level Suicide Risk Level: High-Moderate (q15 min suicide checks) Risk Factors Assessment Male: Yes : Yes Do You Have Access To A Gun?: Yes (unclear if brother secured) Previous Psychiatric Hospitalization: Yes Protective Factors Assessment Employed: Yes ("[employer]") Supportive Family: Yes Interval History Identifying Information JESUSITA GALEANO is a 26-year-old M who currently lives in [place], and was admitted on 08/19/22 20:54 on a 201 voluntary commitment for aborted suicide attempt by lethal weapon. Chief Complaint "I guess I didn't realize it was such a big deal," referring to his near suicide Review of Systems Sleep Information Total Hours of Sleep: 36.4 Sleep Comments: obvious error above--6.4 hrs. Meal Information Percent Meal Consumed - Breakfast: 100 Percent Meal Consumed - Lunch: 90 Percent Meal Consumed - Dinner: 100 Subjective Subjective Patient was seen & assessed and interval progress reviewed with treatment team. Patient maintains that main issue driving depressed thoughts is social anxiety. Discussed his records that mainly show various doses of current medications rather than multiple trials. BP low this am (asymptomatic). He reiterated that he often misses doses of clonidine but not Buspar as he finds it helpful. Physical Exam Psychiatric Orientation: alert and oriented x 3 Apperance: appropriately dressed and appropriately groomed Eye Contact: good eye contact Motor Behavior: no abnormal motor movements Speech: normal rate/rhythm/volume of speech Affect: + depressed affect Mood: + depressed mood Thought Process: goal directed thought process Thought Content: reality based without delusions Suicidal Thoughts: denies suicidal plan and denies suicidal intent; + reports suicidal thoughts Homicidal Thoughts: denies homicidal thoughts Hallucinations: no auditory hallucinations and no visual hallucinations Cognition: attention grossly intact and language grossly intact Estimated Intelligence: consistent with education level Insight: + limited insight Judgment: + limited judgement Vital Signs (Past 24 Hours) Last Vital Signs Temp 36.4 C L 08/21/22 06:00 Pulse 93 H 08/21/22 09:00 Resp 18 08/21/22 06:00 BP 87/58 L 08/21/22 09:00 Pulse Ox 96 08/19/22 18:05 O2 Del Method Room Air 08/19/22 22:18 Results & Data ([facility]) Current Inpatient Medications Current Inpatient Medications: Current Inpatient Medications Acetaminophen (Acetaminophen 325 Mg Tab) 650 mg PO Q4H PRN PRN Reason: Headache or Minor Fever Stop: 09/18/22 20:53 Al Hydrox/Mg Hydrox/Simethicone (Aluminum/Magnesium Susp 30 Ml Udc) 30 ml PO Q4H PRN PRN Reason: GI Upset Stop: 09/18/22 20:53 Bismuth Subsalicylate (Bismuth Subsalicylate Liqd 236 Ml) 15 ml PO PRN PRN PRN Reason: Loose Stool Stop: 09/18/22 20:53 Bupropion HCl (Bupropion Xl 300 Mg Tabcr) 300 mg PO DAILY [facility] Stop: 09/19/22 08:59 Last Admin: 08/21/22 07:53 Dose: 300 mg Buspirone HCl (Buspirone 15 Mg Tab) 15 mg PO TID [facility] Stop: 09/18/22 22:14 Last Admin: 08/21/22 14:15 Dose: 15 mg Citalopram Hydrobromide (Citalopram 20 Mg Tab) 20 mg PO DAILY [facility] Stop: 09/21/22 08:59 Hydroxyzine HCl (Hydroxyzine Hcl 25 Mg Tab) 50 mg PO HSZ PRN PRN Reason: Insomnia Stop: 09/18/22 20:53 Hydroxyzine HCl (Hydroxyzine Hcl 25 Mg Tab) 25 mg PO Q4H PRN PRN Reason: Anxiety Stop: 09/18/22 20:53 Lorazepam (Lorazepam 0.5 Mg Tab) 0.5 mg PO TID PRN PRN Reason: Anxiety Stop: 09/19/22 07:44 Magnesium Hydroxide (Magnesium Hydroxide Susp 30 Ml Udc) 30 ml PO DAILY PRN PRN Reason: Constipation Stop: 09/18/22 20:53 Miscellaneous (Remove Nicoderm Patch) 1 each N/A DAILY@0859 [facility] Stop: 09/19/22 08:58 Last Admin: 08/21/22 07:53 Dose: 1 each Nicotine (Nicotine 21 Mg/24 Hr Tdsy) 21 mg TD QAM [facility] Stop: 09/21/22 08:59 Nicotine Polacrilex (Nicotine Polacrilex 2 Mg Gum) 1 piece MT Q2H PRN PRN Reason: nicotine withdrawal Stop: 09/19/22 11:08 Last Admin: 08/20/22 14:18 Dose: 1 piece Sodium Chloride (Sodium Chloride 0.65% Na Soln 45 Ml ([place])) 1 - 2 sprays NA PRN PRN PRN Reason: Nasal Dryness/Congestion Stop: 09/18/22 20:53 Mental Health & Subst Abuse Tx Psychiatrist Name of Psychiatrist: Mike Olivares Psychiatrist's Date Of Appointment With Psychiatric Provider: 09/01/2022 Time of Appointment with Psychiatrist: 11:20am Psychiatric Appointment Comment: [address] [place] [address] Therapist Name of Therapist: [facility]Hamida Taras Therapist's Date of Therapist Appointment: September 04, 2022 Therapy Appointment Comment: [address] [place] [address] Medical Assistant Cardiology Name of Medical Assistant Cardiology: None Post Discharge Appointments Primary Care Physician Name Of Family Doctor/PCP: CHARLIE [facility] Time of Appointment with PCP: please follow up as needed Provider Appointment Comment: [facility] [address] [place] [address] Contact Information Discharge Discharge Address: [address] [place] [address] KEM Reynolds [id number]
[2022-08-22] MEDS: NICOTINE 21 MG/24 HR TDSY TD SCH (08:14)
[2022-08-22] MEDS: buPROPion XL 300 MG TABCR PO SCH (08:14)
[2022-08-22] MEDS: busPIRone 15 MG TAB PO SCH ×3 (08:14→20:40)
[2022-08-22] MEDS ORDERED: CITALOPRAM 20 MG TAB PO SCH (09:00)
--- NOTE | 2022-08-22 14:34 | Psychiatric Progress Note ---
Date of Service August 22, 2022 Impression / Recommendations Impression 26 yo male with longstanding depression and social anxiety quickly developed worsening mood and SI during period of heavy delta 8 use with suicide rehearsal behavior of holding loaded gun to his head. Diagnostically consistent with major depressive disorder with anxious distress and possible substance-induced depression component. He is deemed in need of psychiatric hospitalization for diagnostic clarification, safety and stabilization, medication management and development of further coping skills. 08/22/2022: Ongoing depression but feeling more motivated today. Tolerating taper of celexa. Wants to continue with Wellbutrin and Buspar. Discussed medication treatment options in detail including SSRIs vs SNRIs. Discussed risks, benefits and alternatives. Patient would like to start and consented to sertraline for MDD/social anxiety. Reviewed side effects including but not limited to: GI, DESOUZA, sexual side effects, and counseled on black box warning of potential for emergence of or increased SI and need to let staff know should this occur or should they feel unsafe. Also discussed importance of seeking emergency care following discharge if this side effect occurs in the future. (1) MDD (major depressive disorder), recurrent episode, severe: (2) Suicidal behavior: (3) Major depression: (4) Social anxiety disorder: (5) Cannabis use disorder, moderate, dependence: Plan 08/22/2022: Taper Celexa to 10mg qd tomorrow. Start sertraline 25mg tomorrow AM. Continue with Wellbutrin XL 300mg qd. 08/21/22: taper Celexa to 20 mg in am in preparation for a trial of another antidepressant to better target anxiety. D/C clonidine as dose held due to BP this am and sporadic compliance. Reviewed risk of rebound hypertension likely minimal. Already using Ativan prn in some circumstances but propranolol may be preferrable given his substance use. He does not plan to resume delta 8 THC as didn't realize the side effects of synthetics and realizes it "messed with him." Brief Intervention was greater than 5 min in length and included assessing readiness to quit, advice on how to reduce or abstain from all forms of THC, and to set a specific goal for this hospitalization. wafer line worker will also assist in anticipating barriers to sobriety. The patient is in [precontemplation] stage with regards to transtheoretical model of change. The patient is advised to decrease alcohol consumption due to depressant effects and risk of interaction with prescription medications. The patient agreed to [] and will be provided with recovery materials to continue to educate self on how to cope with their condition without drinking. 08/20/22: The patient was admitted to the [facility] ([facility]) on q15 min checks (behavioral with suicide precautions) for safety. The patient will participate in group, recreational, and milieu therapies and will be offered additional individual and family sessions as clinically appropriate. Inventory Assets Strengths: sought help, intelligent Needs: improve coping, secure weapon Suicide Risk Level Suicide Risk Level: High-Moderate (q15 min suicide checks) (SI with rehearsal behavior prior to admission with ongoing severe depression and intermittent SI but feels safe in the hospital and feels comfortable letting nurses know if he feels unable to remain safe or requires additional support) Risk Factors Assessment Male: Yes : Yes Do You Have Access To A Gun?: Yes (unclear if brother secured) Previous Psychiatric Hospitalization: Yes Protective Factors Assessment Employed: Yes ("[employer]") Supportive Family: Yes Interval History Identifying Information JESUSITA GALEANO is a 26-year-old M who currently lives in [place], and was admitted on 08/19/22 20:54 on a 201 voluntary commitment for aborted suicide attempt by lethal weapon. Chief Complaint "I woke up early adn read thw workbook, it's a better day so far". Review of Systems Sleep Information Total Hours of Sleep: 6.5 Sleep Comments: Meal Information Percent Meal Consumed - Breakfast: 75 Percent Meal Consumed - Lunch: 90 Percent Meal Consumed - Dinner: 100 Subjective Subjective Patient was seen & assessed and interval progress reviewed with treatment team nursing and social work. Attending groups. Reflected on events leading to hospitalization including holding a gun to his head, he agrees this was alarming noting "I was kind of at the edge to be honest" and at that last second decided to seek help. Notes his sleep is "not the best" which he attributes to hospital mattress, reviewed option to try Vistaril to help with sleep which he may try tonight. No side effects so far from Celexa taper. Reviewed past psych medication trials and he denies any hx of other SSRI trials nor SNRIs. Physical Exam Psychiatric Orientation: alert and oriented x 3 Apperance: appropriately dressed and appropriately groomed Eye Contact: good eye contact Motor Behavior: no abnormal motor movements Speech: normal rate/rhythm/volume of speech Affect: + depressed affect Mood: + depressed mood Thought Process: goal directed thought process Thought Content: reality based without delusions Suicidal Thoughts: denies suicidal plan and denies suicidal intent; + reports suicidal thoughts (intermittent, none so far this morning) Homicidal Thoughts: denies homicidal thoughts Hallucinations: no auditory hallucinations and no visual hallucinations Cognition: attention grossly intact and language grossly intact Estimated Intelligence: consistent with education level Insight: + limited insight Judgment: + limited judgement Vital Signs (Past 24 Hours) Last Vital Signs Temp 36.8 C 08/22/22 06:00 Pulse 76 08/22/22 06:00 Resp 16 08/22/22 06:00 BP 119/79 08/22/22 06:39 Pulse Ox 98 08/22/22 06:00 O2 Del Method Room Air 08/22/22 06:00 Results & Data ([facility]) Current Inpatient Medications Current Inpatient Medications: Current Inpatient Medications Acetaminophen (Acetaminophen 325 Mg Tab) 650 mg PO Q4H PRN PRN Reason: Headache or Minor Fever Stop: 09/18/22 20:53 Al Hydrox/Mg Hydrox/Simethicone (Aluminum/Magnesium Susp 30 Ml Udc) 30 ml PO Q4H PRN PRN Reason: GI Upset Stop: 09/18/22 20:53 Bismuth Subsalicylate (Bismuth Subsalicylate Liqd 236 Ml) 15 ml PO PRN PRN PRN Reason: Loose Stool Stop: 09/18/22 20:53 Bupropion HCl (Bupropion Xl 300 Mg Tabcr) 300 mg PO DAILY [facility] Stop: 09/19/22 08:59 Last Admin: 08/22/22 08:14 Dose: 300 mg Buspirone HCl (Buspirone 15 Mg Tab) 15 mg PO TID [facility] Stop: 09/18/22 22:14 Last Admin: 08/22/22 13:55 Dose: 15 mg Citalopram Hydrobromide (Citalopram 20 Mg Tab) 10 mg PO DAILY [facility] Stop: 09/22/22 08:59 Hydroxyzine HCl (Hydroxyzine Hcl 25 Mg Tab) 50 mg PO HSZ PRN PRN Reason: Insomnia Stop: 09/18/22 20:53 Hydroxyzine HCl (Hydroxyzine Hcl 25 Mg Tab) 25 mg PO Q4H PRN PRN Reason: Anxiety Stop: 09/18/22 20:53 Lorazepam (Lorazepam 0.5 Mg Tab) 0.5 mg PO TID PRN PRN Reason: Anxiety Stop: 09/19/22 07:44 Magnesium Hydroxide (Magnesium Hydroxide Susp 30 Ml Udc) 30 ml PO DAILY PRN PRN Reason: Constipation Stop: 09/18/22 20:53 Miscellaneous (Remove Nicoderm Patch) 1 each N/A DAILY@0859 [facility] Stop: 09/19/22 08:58 Last Admin: 08/22/22 08:18 Dose: 1 each Nicotine (Nicotine 21 Mg/24 Hr Tdsy) 21 mg TD QAM [facility] Stop: 09/21/22 08:59 Last Admin: 08/22/22 08:14 Dose: 21 mg Nicotine Polacrilex (Nicotine Polacrilex 2 Mg Gum) 1 piece MT Q2H PRN PRN Reason: nicotine withdrawal Stop: 09/19/22 11:08 Last Admin: 08/20/22 14:18 Dose: 1 piece Sertraline HCl (Sertraline Hcl 50 Mg Tablet) 25 mg PO QAM [facility] Stop: 09/22/22 08:59 Sodium Chloride (Sodium Chloride 0.65% Na Soln 45 Ml ([place])) 1 - 2 sprays NA PRN PRN PRN Reason: Nasal Dryness/Congestion Stop: 09/18/22 20:53 Mental Health & Subst Abuse Tx Psychiatrist Name of Psychiatrist: Mike Olivares Psychiatrist's Date Of Appointment With Psychiatric Provider: 09/01/2022 Time of Appointment with Psychiatrist: 11:20am Psychiatric Appointment Comment: [address] [place] [address] Therapist Name of Therapist: [facility]-Hamida Grajeda Therapist's Date of Therapist Appointment: September 04, 2022 Therapy Appointment Comment: [address] [place] [id number] Consumer Electronic Retail Specialist Name of Consumer Electronic Retail Specialist: None Post Discharge Appointments Primary Care Physician Name Of Family Doctor/PCP: CHARLIE Primary Care Time of Appointment with PCP: please follow up as needed Provider Appointment Comment: [address] [place] [address] Contact Information Discharge Discharge Address: [facility] [place] [address]
[2022-08-22] MEDS: hydrOXYzine HCl 25 MG TAB PO PRN (20:43)
[2022-08-23] MEDS: NICOTINE 21 MG/24 HR TDSY TD SCH (08:11)
[2022-08-23] MEDS: buPROPion XL 300 MG TABCR PO SCH (08:14)
[2022-08-23] MEDS: busPIRone 15 MG TAB PO SCH ×3 (08:14→20:46)
[2022-08-23] MEDS ORDERED: SERTRALINE HCL 50 MG TABLET PO SCH (09:00)
[2022-08-23] MEDS ORDERED: CITALOPRAM 20 MG TAB PO SCH (09:00)
[2022-08-23] MEDS ORDERED: PROPRANOLOL HCL 10 MG TAB PO PRN (10:53)
--- NOTE | 2022-08-23 16:40 | Psychiatric Progress Note ---
Date of Service August 23, 2022 Impression / Recommendations Impression 26 yo male with longstanding depression and social anxiety quickly developed worsening mood and SI during period of heavy delta 8 use with suicide rehearsal behavior of holding loaded gun to his head. Diagnostically consistent with major depressive disorder with anxious distress and possible substance-induced depression component. He is deemed in need of psychiatric hospitalization for diagnostic clarification, safety and stabilization, medication management and development of further coping skills. 08/23/2022: Ongoing depression and anxiety but starting to trend toward improvement. Slept better with Vistaril. Tolerating initial dose of sertraline without side effects. Spent 45 minutes processing impact of social anxiety on limiting him from doing many activities and processing driving factors behind hi s suicidal ideation and recent near attempt. He consents to starting propranolol as needed for anxiety reviewed side effects including but not limited to potential for depression, low BP, syncope. (1) MDD (major depressive disorder), recurrent episode, severe: (2) Suicidal behavior: (3) Major depression: (4) Social anxiety disorder: (5) Cannabis use disorder, moderate, dependence: Plan 08/23/2022: Increase sertraline to 50mg qAM tomorrow. Discontinue celexa. Continue Wellbutrin XL 300mg qd. Start propranolol 10mg BID prn for anxiety. D iscussed exposure of eating in front of peers while hospitalized. 08/22/2022: Taper Celexa to 10mg qd tomorrow. Start sertraline 25mg tomorrow AM. Continue with Wellbutrin XL 300mg qd. 08/21/22: taper Celexa to 20 mg in am in preparation for a trial of another antidepressant to better target anxiety. D/C clonidine as dose held due to BP this am and sporadic compliance. Reviewed risk of rebound hypertension likely minimal. Already using Ativan prn in some circumstances but propranolol may be preferrable given his substance use. He does not plan to resume delta 8 THC as didn't realize the side effects of synthetics and realizes it "messed with him." Brief Intervention was greater than 5 min in length and included assessing readiness to quit, advice on how to reduce or abstain from all forms of THC, and to set a specific goal for this hospitalization. [employer] worker will also assist in anticipating barriers to sobriety. The patient is in [precontemplation] stage with regards to transtheoretical model of change. The patient is advised to decrease alcohol consumption due to depressant effects and risk of interaction with prescription medications. The patient agreed to [] and will be provided with recovery materials to continue to educate self on how to cope with their condition without drinking. 08/20/22: The patient was admitted to the [facility] ([facility]) on q15 min checks (behavioral with suicide precautions) for safety. The patient will participate in group, recreational, and milieu therapies and will be offered additional individual and family sessions as clinically appropriate. Inventory Assets Strengths: sought help, intelligent Needs: improve coping, secure weapon Suicide Risk Level Suicide Risk Level: High-Moderate (q15 min suicide checks) (SI with rehearsal behavior prior to admission with ongoing severe depression and intermittent SI but feels safe in the hospital and feels comfortable letting nurses know if he feels unable to remain safe or requires additional support) Risk Factors Assessment Male: Yes : Yes Do You Have Access To A Gun?: Yes (unclear if brother secured) Previous Psychiatric Hospitalization: Yes Protective Factors Assessment Employed: Yes ("[employer]") Supportive Family: Yes Interval History Identifying Information JESUSITA GALEANO is a 26-year-old M who currently lives in [place], and was admitted on 08/19/22 20:54 on a 201 voluntary commitment for aborted suicide attempt by lethal weapon. Chief Complaint "Feeling remorseful for what I put my family through". Review of Systems Sleep Information Total Hours of Sleep: 7 Meal Information Percent Meal Consumed - Breakfast: 50 Percent Meal Consumed - Lunch: 75 Percent Meal Consumed - Dinner: 50 Subjective Subjective Patient was seen & assessed and interval progress reviewed with treatment team nursing and social work. Attending groups, social with peers, attending to self- care needs and showering. Visited with his brother yesterday and had family meeting with his mother. Notes this was emotional but is glad to be open with all his family about his depression and recent SI. No side effects to medication adjustments so far. Spent a lot of time processing impact of social anxiety on his recent depressive episode that in turn lead to near suicide attempt. He remains unsure what caused him to abort the attempt but is now "glad I did, whatever that part of me was". Slept much better with Vistaril. Future-oriented about work. Physical Exam Psychiatric Orientation: alert and oriented x 3 Apperance: appropriately dressed and appropriately groomed Eye Contact: good eye contact Motor Behavior: no abnormal motor movements Speech: normal rate/rhythm/volume of speech Affect: + anxious affect and + constricted affect Mood: + depressed mood and + anxious mood Thought Process: goal directed thought process Thought Content: reality based without delusions Suicidal Thoughts: denies suicidal thoughts, denies suicidal plan and denies suicidal intent Homicidal Thoughts: denies homicidal thoughts Hallucinations: no auditory hallucinations and no visual hallucinations Cognition: attention grossly intact and language grossly intact Estimated Intelligence: consistent with education level Insight: + fair insight Judgment: + limited judgement Vital Signs (Past 24 Hours) Last Vital Signs Temp 36.7 C 08/23/22 06:00 Pulse 76 08/23/22 06:00 Resp 18 08/23/22 06:00 BP 126/80 08/23/22 06:45 Pulse Ox 99 08/23/22 06:00 O2 Del Method Room Air 08/23/22 06:00 Results & Data ([facility]) Current Inpatient Medications Current Inpatient Medications: Current Inpatient Medications Acetaminophen (Acetaminophen 325 Mg Tab) 650 mg PO Q4H PRN PRN Reason: Headache or Minor Fever Stop: 09/18/22 20:53 Al Hydrox/Mg Hydrox/Simethicone (Aluminum/Magnesium Susp 30 Ml Udc) 30 ml PO Q4H PRN PRN Reason: GI Upset Stop: 09/18/22 20:53 Bismuth Subsalicylate (Bismuth Subsalicylate Liqd 236 Ml) 15 ml PO PRN PRN PRN Reason: Loose Stool Stop: 09/18/22 20:53 Bupropion HCl (Bupropion Xl 300 Mg Tabcr) 300 mg PO DAILY [facility] Stop: 09/19/22 08:59 Last Admin: 08/23/22 08:14 Dose: 300 mg Buspirone HCl (Buspirone 15 Mg Tab) 15 mg PO TID [facility] Stop: 09/18/22 22:14 Last Admin: 08/23/22 15:16 Dose: 15 mg Hydroxyzine HCl (Hydroxyzine Hcl 25 Mg Tab) 50 mg PO HSZ PRN PRN Reason: Insomnia Stop: 09/18/22 20:53 Last Admin: 08/22/22 20:43 Dose: 50 mg Hydroxyzine HCl (Hydroxyzine Hcl 25 Mg Tab) 25 mg PO Q4H PRN PRN Reason: Anxiety Stop: 09/18/22 20:53 Lorazepam (Lorazepam 0.5 Mg Tab) 0.5 mg PO TID PRN PRN Reason: Anxiety Stop: 09/19/22 07:44 Magnesium Hydroxide (Magnesium Hydroxide Susp 30 Ml Udc) 30 ml PO DAILY PRN PRN Reason: Constipation Stop: 09/18/22 20:53 Miscellaneous (Remove Nicoderm Patch) 1 each N/A DAILY@0859 [facility] Stop: 09/19/22 08:58 Last Admin: 08/23/22 08:18 Dose: 1 each Nicotine (Nicotine 21 Mg/24 Hr Tdsy) 21 mg TD QAM [facility] Stop: 09/21/22 08:59 Last Admin: 08/23/22 08:11 Dose: 21 mg Nicotine Polacrilex (Nicotine Polacrilex 2 Mg Gum) 1 piece MT Q2H PRN PRN Reason: nicotine withdrawal Stop: 09/19/22 11:08 Last Admin: 08/20/22 14:18 Dose: 1 piece Propranolol HCl (Propranolol Hcl 10 Mg Tab) 10 mg PO BID PRN PRN Reason: Anxiety Stop: 09/22/22 10:59 Sertraline HCl (Sertraline Hcl 50 Mg Tablet) 50 mg PO QAM [facility] Stop: 09/23/22 08:59 Sodium Chloride (Sodium Chloride 0.65% Na Soln 45 Ml ([place])) 1 - 2 sprays NA PRN PRN PRN Reason: Nasal Dryness/Congestion Stop: 09/18/22 20:53 Mental Health & Subst Abuse Tx Psychiatrist Name of Psychiatrist: Mike Olivares Psychiatrist's Date Of Appointment With Psychiatric Provider: 09/01/2022 Time of Appointment with Psychiatrist: 11:20am Psychiatric Appointment Comment: [address] [place] [address] Therapist Name of Therapist: [facility]-Hamida Grajeda Therapist's Date of Therapist Appointment: September 04, 2022 Therapy Appointment Comment: [address] [place] [id number] Shearer Operator Name of Shearer Operator: None Post Discharge Appointments Primary Care Physician Name Of Family Doctor/PCP: CHARLIE Primary Care Time of Appointment with PCP: please follow up as needed Provider Appointment Comment: [address] [place] [address] Contact Information [facility]charge Discharge [facility] [place] [address]
[2022-08-23] MEDS: hydrOXYzine HCl 25 MG TAB PO PRN (20:48)
[2022-08-24] MEDS: buPROPion XL 300 MG TABCR PO SCH (08:25)
[2022-08-24] MEDS: busPIRone 15 MG TAB PO SCH ×3 (08:25→20:38)
[2022-08-24] MEDS: NICOTINE 21 MG/24 HR TDSY TD SCH (08:25)
[2022-08-24] MEDS: SERTRALINE HCL 50 MG TABLET PO SCH (08:26)
--- NOTE | 2022-08-24 08:56 | Psychiatric Progress Note ---
Date of Service August 24, 2022 Impression / Recommendations Impression 26 yo male with longstanding depression and social anxiety quickly developed worsening mood and SI during period of heavy delta 8 use with suicide rehearsal behavior of holding loaded gun to his head. Diagnostically consistent with major depressive disorder with anxious distress and possible substance-induced depression component. He is deemed in need of psychiatric hospitalization for diagnostic clarification, safety and stabilization, medication management and development of further coping skills. 08/24/2022: Mood significantly improving, continues to deny SI. Anxiety feels better managed, though still anxious especially in social situations. Tolerating higher dose of sertraline so far without side effects. Extensive motivational interviewing regarding substance use of cannabis and Kratum. He plans to avoid use of delta 8 and Kratum after discharge, may eventually pursue medical marijuana card and use cannabis, non-synthetic, once a week but plans to have his brother help him dispense what he uses so he doesn't end up excessively using as he was doing prior to hospitalization to cope with anxiety. (1) MDD (major depressive disorder), recurrent episode, severe: (2) Suicidal behavior: (3) Major depression: (4) Social anxiety disorder: (5) Cannabis use disorder, moderate, dependence: Plan 08/24/2022: Continue current medications and tx plan. 08/23/2022: Increase sertraline to 50mg qAM tomorrow. Discontinue celexa. Continue Wellbutrin XL 300mg qd. Start propranolol 10mg BID prn for anxiety. Discussed exposure of eating in front of peers while hospitalized. 08/22/2022: Taper Celexa to 10mg qd tomorrow. Start sertraline 25mg tomorrow AM. Continue with Wellbutrin XL 300mg qd. 08/21/22: taper Celexa to 20 mg in am in preparation for a trial of another antidepressant to better target anxiety. D/C clonidine as dose held due to BP this am and sporadic compliance. Reviewed risk of rebound hypertension likely minimal. Already using Ativan prn in some circumstances but propranolol may be preferable given his substance use. He does not plan to resume delta 8 THC as didn't realize the side effects of synthetics and realizes it "messed with him." Brief Intervention was greater than 5 min in length and included assessing readiness to quit, advice on how to reduce or abstain from all forms of THC, and to set a specific goal for this hospitalization. adoption worker will also assist in anticipating barriers to sobriety. The patient is in contemplative stage with regards to transtheoretical model of change. The patient is advised to decrease alcohol consumption due to depressant effects and risk of interaction with prescription medications. The patient agreed to reduce his use and will be provided with recovery materials to continue to educate self on how to cope with their condition without drinking. 08/20/22: The patient was admitted to the [facility] ([facility]) on q15 min checks (behavioral with suicide precautions) for safety. The patient will participate in group, recreational, and milieu therapies and will be offered additional individual and family sessions as clinically appropriate. Inventory Assets Strengths: sought help, intelligent Needs: improve coping, secure weapon Suicide Risk Level Suicide Risk Level: Moderate (q15 min suicide checks) (SI with rehearsal behavior prior to admission but mood improving, now without SI and feels safe in the hospital and feels comfortable letting nurses know if he feels unable to remain safe or requires additional support) Risk Factors Assessment Male: Yes : Yes Do You Have Access To A Gun?: Yes (unclear if brother secured) Previous Psychiatric Hospitalization: Yes Protective Factors Assessment Employed: Yes ("[employer] Supportive Family: Yes Interval History Identifying Information JESUSITA GALEANO is a 26-year-old M who currently lives in [place], and was admitted on 08/19/22 20:54 on a 201 voluntary commitment for aborted suicide attempt by lethal weapon. Chief Complaint "I'm doing well". Review of Systems Sleep Information Total Hours of Sleep: 6.25 Meal Information Percent Meal Consumed - Breakfast: 50 Percent Meal Consumed - Lunch: 75 Percent Meal Consumed - Dinner: 75 Subjective Subjective Patient was seen & assessed and interval progress reviewed with treatment team nursing and social work. Going to groups. Social with peers. Feels his mood is improving. Denies SI. No side effects from sertraline or Wellbutrin. Didn't try propranolol yesterday, may try this today if he has anxiety before lunch about eating in front of peers. Had a good visit with his dad and brother yesterday. Reviewed and confirmed that his brother sold his gun and he has no other access to guns. Extensive motivational interviewing regarding cannabis and other recreational substance use including Kratum. Physical Exam Psychiatric Orientation: alert and oriented x 3 Apperance: appropriately dressed and appropriately groomed Eye Contact: good eye contact Motor Behavior: no abnormal motor movements Speech: normal rate/rhythm/volume of speech Affect: + constricted affect Mood: + anxious mood Thought Process: goal directed thought process Thought Content: reality based without delusions Suicidal Thoughts: denies suicidal thoughts, denies suicidal plan and denies suicidal intent Homicidal Thoughts: denies homicidal thoughts Hallucinations: no auditory hallucinations and no visual hallucinations Cognition: attention grossly intact and language grossly intact Estimated Intelligence: consistent with education level Insight: + fair insight Judgment: + fair judgement Vital Signs (Past 24 Hours) Last Vital Signs Temp 36.5 C 08/24/22 06:27 Pulse 77 08/24/22 06:28 Resp 16 08/24/22 06:27 BP 123/87 08/24/22 06:28 Pulse Ox 99 08/23/22 06:00 O2 Del Method Room Air 08/23/22 06:00 Results & Data ([facility]) Current Inpatient Medications Current Inpatient Medications: Current Inpatient Medications Acetaminophen (Acetaminophen 325 Mg Tab) 650 mg PO Q4H PRN PRN Reason: Headache or Minor Fever Stop: 09/18/22 20:53 Al Hydrox/Mg Hydrox/Simethicone (Aluminum/Magnesium Susp 30 Ml Udc) 30 ml PO Q4H PRN PRN Reason: GI Upset Stop: 09/18/22 20:53 Bismuth Subsalicylate (Bismuth Subsalicylate Liqd 236 Ml) 15 ml PO PRN PRN PRN Reason: Loose Stool Stop: 09/18/22 20:53 Bupropion HCl (Bupropion Xl 300 Mg Tabcr) 300 mg PO DAILY LENI Stop: 09/19/22 08:59 Last Admin: 08/24/22 08:25 Dose: 300 mg Buspirone HCl (Buspirone 15 Mg Tab) 15 mg PO TID LENI Stop: 09/18/22 22:14 Last Admin: 08/24/22 08:25 Dose: 15 mg Hydroxyzine HCl (Hydroxyzine Hcl 25 Mg Tab) 50 mg PO HSZ PRN PRN Reason: Insomnia Stop: 09/18/22 20:53 Last Admin: 08/23/22 20:48 Dose: 50 mg Hydroxyzine HCl (Hydroxyzine Hcl 25 Mg Tab) 25 mg PO Q4H PRN PRN Reason: Anxiety Stop: 09/18/22 20:53 Lorazepam (Lorazepam 0.5 Mg Tab) 0.5 mg PO TID PRN PRN Reason: Anxiety Stop: 09/19/22 07:44 Magnesium Hydroxide (Magnesium Hydroxide Susp 30 Ml Udc) 30 ml PO DAILY PRN PRN Reason: Constipation Stop: 09/18/22 20:53 Miscellaneous (Remove Nicoderm Patch) 1 each N/A DAILY@0859 [facility] Stop: 09/19/22 08:58 Last Admin: 08/24/22 08:25 Dose: 1 each Nicotine (Nicotine 21 Mg/24 Hr Tdsy) 21 mg TD QAM [facility] Stop: 09/21/22 08:59 Last Admin: 08/24/22 08:25 Dose: 21 mg Nicotine Polacrilex (Nicotine Polacrilex 2 Mg Gum) 1 piece MT Q2H PRN PRN Reason: nicotine withdrawal Stop: 09/19/22 11:08 Last Admin: 08/20/22 14:18 Dose: 1 piece Propranolol HCl (Propranolol Hcl 10 Mg Tab) 10 mg PO BID PRN PRN Reason: Anxiety Stop: 09/22/22 10:59 Sertraline HCl (Sertraline Hcl 50 Mg Tablet) 50 mg PO QAM [facility] Stop: 09/23/22 08:59 Last Admin: 08/24/22 08:26 Dose: 50 mg Sodium Chloride (Sodium Chloride 0.65% Na Soln 45 Ml ([place])) 1 - 2 sprays NA PRN PRN PRN Reason: Nasal Dryness/Congestion Stop: 09/18/22 20:53 Mental Health & Subst Abuse Tx Psychiatrist Name of Psychiatrist: Mike Olivares Psychiatrist's Date Of Appointment With Psychiatric Provider: 09/01/2022 Time of Appointment with Psychiatrist: 11:20am Psychiatric Appointment Comment: [address] [place] [address] Therapist Name of Therapist: [facility]-Hamida Grajeda Therapist's Date of Therapist Appointment: September 04, 2022 Therapy Appointment Comment: [address] [place] [id number] [employer] Name of Bread And Pastry Baker: None Post Discharge Appointments Primary Care Physician Name Of Family Doctor/PCP: CHARLIE [facility] Time of Appointment with PCP: please follow up as needed Provider Appointment Comment: [address] [place] [address] Contact Information Discharge Discharge Address: [address] [place] [id number]
[2022-08-24] MEDS: hydrOXYzine HCl 25 MG TAB PO PRN (20:38)
[2022-08-25] MEDS: buPROPion XL 300 MG TABCR PO SCH (08:41)
[2022-08-25] MEDS: NICOTINE 21 MG/24 HR TDSY TD SCH (08:42)
[2022-08-25] MEDS: SERTRALINE HCL 50 MG TABLET PO SCH (08:42)
[2022-08-25] MEDS: busPIRone 15 MG TAB PO SCH (08:42)
--- NOTE | 2022-08-25 09:49 | Discharge Summary ---
Date of Service August 25, 2022 History of Present Illness Jostin describes longstanding social anxiety and has been getting more treatment for past two years for depression. He stated that he started to feel better and was pushing himself to socialize more but couldn't which caused him to spiral. He started smoking MJ, which on further questioning is Delta 8 from the gas station. He states that he feels relief for "maybe an hour and half" and then feels worse. He has been using heavily for past 2 weeks. He started having suicidal thoughts and planned to use his brother's gun at a time his step- brother (roommate) and step-brother's girlfriend were out of the home. These thoughts/plan developed over 2 days of him missing work. He doesn't particularly like his job as he feels the pay is low and feels like "the whole place falls apart when I'm not there." Yesterday he held the gun to his amish and thought a bout pulling the trigger to see if the safety was on. In that moment he decide to get help instead. He reports that physically he feels well and that he is taking medication consistently without side effects. Physical Exam Vital Signs (Past 24 Hours) Last Vital Signs Temp 37 C 08/25/22 06:35 Pulse 76 08/25/22 06:36 Resp 16 08/25/22 06:35 BP 117/82 08/25/22 06:36 Pulse Ox 99 08/23/22 06:00 O2 Del Method Room Air 08/23/22 06:00 See admission H&P and DOD summary. Principal Diagnosis Major Depressive Disorder with anxious distress Psychiatric Data See daily stay summary. In short, patient was engaged with the social/therapeutic milieu of the unit, safety was maintained and the patient was cooperative with care. Medication changes included discontinuation of clonidine due to repeated low BP after doses, cross-taper from citalopram to sertraline 50mg qd, Vistaril 50mg HS prn for insomnia and propranolol 10mg BID prn for panic/performance anxiety (he understands need to monitor for any breathing issues given history of asthma and inhaler use) and they tolerated this well. A family session was held and safety plan was completed prior to discharge. He actively and insightfully participated in safety planning and in discussions about ways to seek support and recognizing warning signs and utilizing coping skills. Reviewed mobile apps that could be used for additional ways to have their safety plan and contacts easily available should thoughts of SI re-emerge in the future. Reviewed importance of seeking emergency care should SI intensif y, worsen or should they feel unsafe in the future which they agree to do. On the day of discharge he stated his mood was "great" and remained future-oriented including seeing his parents, brother, getting help cleaning his room/doing laundry, and going to back work and engaging in aftercare appointments for psychiatry and therapy. Day of Discharge Assessment Today the patient voices readiness for discharge. They note improvement in mood and anxiety. They deny thoughts of harm to self or others. Thoughts are organized and they are clinically improved from admission. There is no evidence of psychosis. They improved in the hospital with support and medication adjustments. They agree to take medications as prescribed and keep follow-up appointments. At the time of the discharge they are deemed to be stable and appropriate for outpatient level of care. They are not deemed to be at imminent risk of harm to self or others. They are aware of emergency and crisis services. Knows to call 911 or go to nearest emergency care center if in a crisis which cannot be handled as an outpatient. Transition of Care Transition Of Care Record: was reviewed with the patient Advance Directives Advance Directives Information Provided: Yes Advance Directives: No Mental Health Advance Directive: No Advance Directives on File: No Living Will: No Power of Repairer Cylinder Heads: No Advance Directives Reason:: Declines as Mental Health Visit. Suicide Risk Level Suicide Risk Level Comments: Acute risk is low given improvement in mood and denial of SI, lack of access to lethal means, plan to reduce substance use, improvement in sleep and hopefulness. Chronic risk is moderate given some non-modifiable risk factors: psychiatric co-morbid diagnoses, periods of impulsivity, prior near attempt, but also with protective factors including: employed, good social support, sense of responsibility to family and social supports, outpatient care in place, positive coping skills, positive problem solving, capacity to establish therapeutic alliance, willingness to engage with treatment, capacity for self- observation. Counseled on ways to reduce acute and chronic risk including engaging with outpatient providers, working on exposure ladder with reward menu for ongoing CBT exposures to help with social anxiety, reducing and ideally avoiding substance use, using safety plan if needed, utilizing supports, taking medication, and using coping skills. Modifiable risk factors of SI, anxiety and depression were addressed during hospitalization through development of new coping skills, family meeting, safety planning, and medication adjustments. Risk Factors Assessment Male: Yes : Yes Do You Have Access To A Gun?: No (no longer with access to a gun, his brother sold it ) Health Problems: No Mental Health Diagnoses: Yes Substance Use Disorders: Yes Previous Attempt: No Family History of Suicide: No Previous Psychiatric Hospitalization: Yes Hopelessness: No Protective Factors Assessment Employed: Yes ("[employer]") Stable Relationships: Yes Supportive Family: Yes Good Rapport with Provider: Yes Tobacco Cessation at Discharge Tobacco Cessation Medication Prescribed at Discharge: Offered & Pt Refused Discharge Data Lab Results 08/19/22 08/19/22 08/19/22 18:12 18:17 18:17 WBC RBC Hgb Hct MCV MCH MCHC RDW Std Deviation RDW Coeff of Vanessa Plt Count MPV Immature Gran % (Auto) Neut % (Auto) Lymph % (Auto) [place] % (Auto) Eos % (Auto) Baso % (Auto) Neut # (Auto) Lymph # (Auto) [place] # (Auto) Eos # (Auto) Baso # (Auto) Immature Gran # (Auto) Sodium Potassium Chloride Carbon Dioxide Anion Gap BUN Creatinine Est Cr Clr Drug Dosing Est GFR ( Amer) Est GFR (Non-Af Amer) BUN/Creatinine Ratio Glucose Calcium Total Bilirubin AST ALT Alkaline Phosphatase Total Protein Albumin Globulin Albumin/Globulin Ratio TSH Urine Color Yellow Urine Appearance Clear Urine pH 6.5 Ur Specific [place] 1.022 Urine Protein Negative Urine Glucose (UA) Negative Urine Ketones Negative Urine Blood Negative Urine Nitrite Negative Urine Bilirubin Negative Urine Urobilinogen Negative Ur Leukocyte Esterase Negative Salicylates Urine Opiates Screen Neg Ur Methadone, Qual Neg Acetaminophen Urine Barbiturates Neg Ur Phencyclidine (PCP) Neg U Amphetamin/Meth Scrn Neg MDMA (Ecstasy) Screen Pos H U Benzodiazepines Scrn Neg Ur Cocaine Metabolite Neg U Marijuana (THC) Screen Pos H Ethyl Alcohol mg/dL SARS-CoV-2, RNA, NAAT NEGATIVE 08/19/22 08/19/22 08/19/22 18:31 18:31 18:31 WBC 6.27 RBC 4.97 Hgb 15.2 Hct 43.5 MCV 87.5 MCH 30.6 MCHC 34.9 RDW Std Deviation 38.3 RDW Coeff of Vanessa 11.9 Plt Count 194 MPV 11.2 Immature Gran % (Auto) 0.2 Neut % (Auto) 65.1 Lymph % (Auto) 23.8 [place] % (Auto) 5.6 Eos % (Auto) 5.1 Baso % (Auto) 0.2 Neut # (Auto) 4.09 Lymph # (Auto) 1.49 [place] # (Auto) 0.35 Eos # (Auto) 0.32 Baso # (Auto) 0.01 Immature Gran # (Auto) 0.01 Sodium 139 Potassium 4.1 Chloride 103 Carbon Dioxide 30 Anion Gap 6 BUN 10 Creatinine 1.09 Est Cr Clr Drug Dosing 104.3 Est GFR ( Amer) 108.8 Est GFR (Non-Af Amer) 93.8 BUN/Creatinine Ratio 9.2 L Glucose 100 H Calcium 9.3 Total Bilirubin 0.4 AST 16 ALT 16 Alkaline Phosphatase 67 Total Protein 6.9 Albumin 4.6 Globulin 2.3 L Albumin/Globulin Ratio 2.0 TSH 2.945 Urine Color Urine Appearance Urine pH Ur Specific [place] Urine Protein Urine Glucose (UA) Urine Ketones Urine Blood Urine Nitrite Urine Bilirubin Urine Urobilinogen Ur Leukocyte Esterase Salicylates Urine Opiates Screen Ur Methadone, Qual Acetaminophen Urine Barbiturates Ur Phencyclidine (PCP) U Amphetamin/Meth Scrn MDMA (Ecstasy) Screen U Benzodiazepines Scrn Ur Cocaine Metabolite U Marijuana (THC) Screen Ethyl Alcohol mg/dL SARS-CoV-2, RNA, NAAT 08/19/22 08/19/22 18:31 18:31 WBC RBC Hgb Hct MCV MCH MCHC RDW Std Deviation RDW Coeff of Vanessa Plt Count MPV Immature Gran % (Auto) Neut % (Auto) Lymph % (Auto) [place] % (Auto) Eos % (Auto) Baso % (Auto) Neut # (Auto) Lymph # (Auto) [place] # (Auto) Eos # (Auto) Baso # (Auto) Immature Gran # (Auto) Sodium Potassium Chloride Carbon Dioxide Anion Gap BUN Creatinine Est Cr Clr Drug Dosing Est GFR ( Amer) Est GFR (Non-Af Amer) BUN/Creatinine Ratio Glucose Calcium Total Bilirubin AST ALT Alkaline Phosphatase Total Protein Albumin Globulin Albumin/Globulin Ratio TSH Urine Color Urine Appearance Urine pH Ur Specific [place] Urine Protein Urine Glucose (UA) Urine Ketones Urine Blood Urine Nitrite Urine Bilirubin Urine Urobilinogen Ur Leukocyte Esterase Salicylates < 3.0 L Urine Opiates Screen Ur Methadone, Qual Acetaminophen < 3 L Urine Barbiturates Ur Phencyclidine (PCP) U Amphetamin/Meth Scrn MDMA (Ecstasy) Screen U Benzodiazepines Scrn Ur Cocaine Metabolite U Marijuana (THC) Screen Ethyl Alcohol mg/dL < 10.0 SARS-CoV-2, RNA, NAAT Hospital Course (1) MDD (major depressive disorder), recurrent episode, severe: (2) Suicidal behavior: (3) Major depression: (4) Social anxiety disorder: (5) Cannabis use disorder, moderate, dependence: Plan 08/24/2022: Continue current medications and tx plan. 08/23/2022: Increase sertraline to 50mg qAM tomorrow. Discontinue celexa. Continue Wellbutrin XL 300mg qd. Start propranolol 10mg BID prn for anxiety. Discussed exposure of eating in front of peers while hospitalized. 08/22/2022: Taper Celexa to 10mg qd tomorrow. Start sertraline 25mg tomorrow AM. Continue with Wellbutrin XL 300mg qd. 08/21/22: taper Celexa to 20 mg in am in preparation for a trial of another antidepressant to better target anxiety. D/C clonidine as dose held due to BP this am and sporadic compliance. Reviewed risk of rebound hypertension likely minimal. Already using Ativan prn in some circumstances but propranolol may be preferable given his substance use. He does not plan to resume delta 8 THC as didn't realize the side effects of synthetics and realizes it "messed with him." Brief Intervention was greater than 5 min in length and included assessing readiness to quit, advice on how to reduce or abstain from all forms of THC, and to set a specific goal for this hospitalization. manager workers compensation will also assist in anticipating barriers to sobriety. The patient is in contemplative stage with regards to transtheoretical model of change. The patient is advised to decrease alcohol consumption due to depressant effects and risk of interaction with prescription medications. The patient agreed to reduce his use and will be provided with recovery materials to continue to educate self on how to cope with their condition without drinking. 08/20/22: The patient was admitted to the [facility] ([facility] unit) on q15 min checks (behavioral with suicide precautions) for safety. The patient will participate in group, recreational, and milieu therapies and will be offered additional individual and family sessions as clinically appropriate. Mental Health & Subst Abuse Tx Psychiatrist Name of Psychiatrist: Mike Lerma- Wander Olivares Psychiatrist's Date Of Appointment With Psychiatric Provider: 09/01/2022 Time of Appointment with Psychiatrist: 11:20am Psychiatric Appointment Comment: [address] [place] [address] Therapist Name of Therapist: Abine-Hamida Grajeda Therapist's Date of Therapist Appointment: September 04, 2022 Therapy Appointment Comment: [place] [address] Experimental Worker Name of Experimental Worker: None Post Discharge Appointments Primary Care Physician Name Of Family Doctor/PCP: CHARLIE Primary Care Time of Appointment with PCP: please follow up as needed Provider Appointment Comment: [address] [place] [address] Smoking Cessation Counseling Tobacco Cessation Medication Prescribed at Discharge: Offered & Pt Refused Contact Information Discharge Discharge Address: [address] [place] [id number] Discharge Plan Discharge Items Patient Disposition: Home - Self-Care Reason For Visit: SUICIDAL IDEATION Discharge Diagnosis: Major Depressive Disorder with anxious distress Activity: Resume your previous activity Non-emergency contact: Primary Care Provider, Psychiatrist and Therapist Call non-emergency contact if: you have any medication questions and your symptoms worsen Follow-up/Referrals: Primitivo Berry, [Primary Care Provider] - Diet: Regular Addtl Attending Provider Instructions: Optional mobile apps we discussed: -Suicide safety plan -Virtual Hope Box -Panic lift mechanic SPECIAL CARE INSTRUCTIONS: 1. Follow through with your scheduled aftercare appointments. If unable to keep an appointment, please call to reschedule. 2. Take your medication only as prescribed. Medication should not be changed or stopped without the approval of your doctor. In the event of worsening symptoms or concerns about side effects, contact your doctor immediately. 3. Utilize new healthy coping skills, anger management skills, and stress management skills learned during your hospitalization. Journal feelings and process them with a support person. Identify stressors or situations that may result in relapse, deterioration or inappropriate behaviors and develop a plan to deal with those issues. 4. If your coping skills are ineffective and you are in crisis, contact your outpatient providers for direction. If unable to reach your providers, please call the [facility] CRISIS LINE AT , go to the [facility] walk-in center at [address], [address], [place], or go to the closest Emergency Room. 5. Avoid alcohol and un-prescribed drugs. 6. You have been provided with the Mental Health Advance Directives Pamphlet for your review. 7. Your condition is stable for discharge to outpatient level of care, but recovery is an ongoing process. Ifthoughts to harm yourself or others return, follow the safety plan developed during your stay. Planning for a safe return home includes securing weapons. Our treatment team recommends weaponsbe removed from the home until your outpatient provider reassesses your progress. In rare cases where the items themselvescannot be removed, guns and ammunitionshould be secured separatelyand keys stored by a reliable personoutside of the home. If you were admitted on an involuntary commitment, the police or other legal authorities may be involved in this process. AFTERCARE APPOINTMENTS: * Please call your insurance company prior to your scheduled appointment to confirm your aftercare providers are covered. Take your insurance information to your appointments. WHO TO CALL AND WHEN: Medical Emergencies: For questions or emergencies related to your hospital stay, please contact the Inpatient Behavioral Health Unit at [phone]. A configuration analyst is on-call 16/11 for the Behavioral Health Unit for emergencies At any time you feel your situation is an emergency, you may also call 911 immediately. Pending Studies at Discharge: No Stand-Alone Forms: My [facility] Medications and DC Order Prescriptions: New propranolol 10 mg Tablet 10 mg PO BID PRN (Reason: panic attack/performance anxiety) 30 Days Qty: 60 0RF hydroxyzine HCl 50 mg tablet 50 mg PO HS PRN (Reason: insomnia/anxiety) 30 Days Qty: 30 0RF sertraline 50 mg Tablet 50 mg PO QAM 30 Days Qty: 30 0RF Continued lorazepam 0.5 mg tablet 0.5 mg PO TID PRN (Reason: Anxiety) buspirone 15 mg tablet 15 mg PO TID bupropion HCl 300 mg tablet extended release 24 hr 300 mg PO DAILY albuterol sulfate 90 mcg/actuation HFA aerosol inhaler 1 - 2 inh inhalation QID PRN (Reason: Shortness Of Breath Or Wheezing) Discontinued clonidine HCl 0.1 mg tablet 0.05 mg PO BID citalopram 20 mg tablet 40 mg PO DAILY Discharge Orders: Discharge Order (Routine); Ordered 08/25/22 Ordered By: Violette Fatima Admission Data Admit Date/Time: 08/19/22 20:54 Attending Provider: Violette Fatima Admit Provider: Rhonda Palomino Primary Care Provider: Primitivo Berry Other Interventions: Discharge Summary Assessment (RN) Last Done: 08/25/22 10:23 PSY Interdisciplinary Discharge Planning Last Done: 08/21/22 10:16 Coding Level of Care Code 89366 D/C day mgmt > 30 min Diagnoses MDD (major depressive disorder), recurrent episode, severe F33.2 Suicidal behavior R45.89 Major depression F32.9 Social anxiety disorder F40.10 Cannabis use disorder, moderate, dependence F12.20 Time Spent (min) 45
== END 2022-08-25 10:38 | disposition home or self-care (01) | DRG 885 ==
LOC: ED 17:59 → SUATTDRO 20:54 → 3S 20:54